=== PATIENT | female | born 1975 | race Caucasian/White ===

== ENCOUNTER → 2020-09-01 | Outpatient (CLI) | payer OTHER | LOC: CT 08-19 13:00 → KOH-I 13:50 → CT 14:00 | DX: R91.8 Other nonspecific abnormal finding of lung field (principal); J98.11 Atelectasis | CPT/HCPCS: 71250 ==

== ENCOUNTER → 2021-04-13 | Outpatient (CLI) | payer OTHER | LOC: KOH-I 09:36 | DX: R10.9 Unspecified abdominal pain (principal) | CPT/HCPCS: 76856 ==

== ENCOUNTER → 2021-08-24 | Outpatient (CLI) | payer OTHER | LOC: HEART 5 08:54 | DX: J44.9 Chronic obstructive pulmonary disease, unspecified (principal) | CPT/HCPCS: 94060; 94729 ==

== ENCOUNTER → 2022-03-02 | Outpatient (CLI) | payer OTHER | LOC: KOH-I 16:00 | DX: J32.9 Chronic sinusitis, unspecified (principal); J34.2 Deviated nasal septum | CPT/HCPCS: 70486 ==